=== PATIENT | male | born 2000 | race Caucasian/White ===

== ENCOUNTER 2021-12-28 20:40 | Emergency (ER) | payer OTHER ==
[2021-12-28 21:02] VITALS: TEMP 99.6
--- NOTE | 2021-12-28 21:22 | ED ---
General Adult HPI - General Chief complaint: Skin/Abscess/Foreign Body Stated complaint: Groin swelling Time Seen by Provider: 12/28/21 21:06 Source: patient, RN notes reviewed Mode of arrival: ambulatory Limitations: no limitations - History of Present Illness Initial comments: Patient is a pleasant 21-year-old male presenting to the emergency Department with swelling left groin. Onset of symptoms was around a week or so ago. Symptoms are worse in the past day or 2, possibly aggravated by [place] around [place] the [place]. Area is left groin, however does not involve the testicle. Patient has noticed some mild bleeding. Patient does have history of similar symptoms previously and there is a family history of abscesses. - Related Data Allergies Allergy/AdvReac Type Severity Reaction Status Date / Time amoxicillin [From Augmentin] Allergy Nausea & Verified 12/28/21 21:03 Vomiting clavulanic acid Allergy Nausea & Verified 12/28/21 21:03 [From Augmentin] Vomiting Penicillins Allergy Nausea & Verified 12/28/21 21:03 Vomiting Sulfa (Sulfonamide Allergy Nausea & Verified 12/28/21 21:03 Antibiotics) Vomiting Review of Systems ROS Statement: Those systems with pertinent positive or pertinent negative responses have been documented in the HPI. ROS Other: All systems not noted in ROS Statement are negative. Constitutional: Denies: weight change Eyes: Denies: eye pain ENT: Denies: ear pain Respiratory: Denies: cough Cardiovascular: Denies: chest pain Endocrine: Denies: fatigue Gastrointestinal: Denies: abdominal pain Genitourinary: Denies: urgency Skin: Reports: as per HPI Past Medical History Past Medical History: No Reported History Past Surgical History: No Surgical Hx Reported Smoking Status: Current every day smoker Past Alcohol Use History: Rare General Exam Limitations: no limitations General appearance: alert, in no apparent distress Head exam: Present: normocephalic Eye exam: Present: normal appearance Respiratory exam: Present: normal lung sounds bilaterally Cardiovascular Exam: Present: regular rate, normal rhythm GI/Abdominal exam: Present: soft. Absent: tenderness exam: Present: other (Left groin Between the inguinal region and scrotum with swelling and tenderness. No scrotal swelling or tenderness.). Absent: scrotal swelling Extremities exam: Present: normal inspection Neurological exam: Present: alert Psychiatric exam: Present: normal affect, normal mood Skin exam: Present: normal color Course Vital Signs 12/28/21 20:56 Temperature 99.6 F Pulse Rate 92 Respiratory 18 Rate Blood Pressure 138/77 O2 Sat by Pulse 100 Oximetry Medical Decision Making - Medical Decision Making Patient reevaluated. Patient and family updated - Radiology Data Radiology results: report reviewed (Ultrasound shows complex mass, possible necrotic lymph node) Disposition Clinical Impression: Groin mass Disposition: HOME SELF-CARE Condition: Stable Instructions (If sedation given, give patient instructions): Lymphadenopathy (ED) Additional Instructions: Please follow-up with urology or general surgeon in the next one to 2 days for recheck, number provided. Please also follow-up with primary care physician. Return for fevers, increased pain or swelling, worsening or changing symptoms or any other concerns. Is patient prescribed a controlled substance at d/c from ED?: No Referrals: Kane Cerda MD [STAFF PHYSICIAN] - 1-2 days Ani Roman MD [STAFF PHYSICIAN] - 1-2 days Reginaldo Hutton MD [STAFF PHYSICIAN] - 1-2 days Time of Disposition: 22:09
--- NOTE | 2021-12-28 21:55 | US ---
EXAMINATION TYPE: US groin LT DATE OF EXAM: 12/28/2021 COMPARISON: NONE CLINICAL HISTORY: eval for abcess. Evaluate for abscess. Scanned patient's left groin at area of concern. There appear to be complex channels at area scanned- ?edema Indistinct, hypoechoic area seen measuring 2.4 x 1.7 x 1.5 cm. IMPRESSION: There is a complex mass in the left groin that appears to contain solid and cystic compon ents. There is a central more solid component measuring 2.4 x 1.5 cm. Mass overall measures approxima tely 4 cm. This could be necrotic lymph nodes. No definite drainable fluid collection.
[2021-12-28] MEDS ORDERED: ACET/COD 300 MG/30 MG STARTER PACK 6 TAB BTL PO STA (22:12)
--- NOTE | 2021-12-28 22:13 | ED ---
Disposition Clinical Impression: Groin mass Disposition: HOME SELF-CARE Condition: Stable Instructions (If sedation given, give patient instructions): Lymphadenopathy (ED) Additional Instructions: Please follow-up with urology or general surgeon in the next one to 2 days for recheck, number provided. Please also follow-up with primary care physician. Return for fevers, increased pain or swelling, worsening or changing symptoms or any other concerns. Prescription for antibiotics sent to pharmacy, please start tomorrow. Prescriptions: Clindamycin [Cleocin] 2 tab PO Q8H #60 cap Is patient prescribed a controlled substance at d/c from ED?: No Referrals: Reginaldo Hutton MD [STAFF PHYSICIAN] - 1-2 days Ani Roman MD [STAFF PHYSICIAN] - 1-2 days Kane Cerda MD [STAFF PHYSICIAN] - 1-2 days Time of Disposition: 22:12
[2021-12-28 22:52] VITALS: BP 133/80; PULSE 88; RESP 16
== END 2021-12-28 22:51 | disposition home or self-care (01) ==
LOC: EC 20:40
DX: R19.09 Other intra-abdominal and pelvic swelling, mass and lump (principal); F17.200 Nicotine dependence, unspecified, uncomplicated; Z88.0 Allergy status to penicillin; Z88.2 Allergy status to sulfonamides; Z88.8 Allergy status to other drugs, medicaments and biological substances
CPT/HCPCS: 99283

== ENCOUNTER 2022-01-02 07:49 | Day surgery (SDC) | payer OTHER ==
[2022-01-01 08:45] VITALS: BMI 32.5
--- NOTE | 2022-01-02 07:34 | P.GSHP ---
History of Present Illness H&P Date: 01/02/22 CHIEF COMPLAINT: Left groin cellulitis with abscess HISTORY OF PRESENT ILLNESS: The patient is a 21 year-old male who presents with left groin cellulitis with failed outpatient antibiotics. He presents today for incision and drainage. PAST MEDICAL HISTORY: Please see list. PAST SURGICAL HISTORY: Please see list. MEDICATIONS: Please see list. ALLERGIES: Please see list. SOCIAL HISTORY: No illicit drug use FAMILY HISTORY: No reports of Crohn disease or ulcerative colitis. REVIEW OF ORGAN SYSTEMS: CONSTITUTIONAL: No reports of fevers or chills. GI: Denies any blood in stools or constipation. PHYSICAL EXAM: VITAL SIGNS: Stable Musculoskeletal: Approximately 5 cm mass along the left groin. GENERAL: Well developed and in no acute distress. Pleasant. HEENT: No sclera icterus. Extraocular movements grossly intact. Moist buccal mucosa. Head is atraumatic, normocephalic. Hears conversational speech. No nasal drainage. NECK: Supple without lymphadenopathy. No JV distention. CHEST: Non-labored respirations and equal bilateral excursions. CARDIOVASCULAR: Regular rate and rhythm. Palpable 2+ radial pulses. ABDOMEN: Soft. Non-tender. Nondistended. NEUROLOGIC: No focal or lateralizing signs. PSYCH: Appropriate affect. Alert and oriented to person, place and time. ASSESSMENT: 1. Left groin cellulitis with abscess PLAN: 1. Will proceed of incision and drainage of left groin cellulitis with abscess. Benefits and risks of infection due to location of lesion also reviewed 2. DVT prophylaxis. 3. Antibiotic prophylaxis. 4. Time of recovery, at least 2 weeks Past Medical History Past Medical History: No Reported History Additional Past Medical History / Comment(s): states hx of boils. , left groin cellulitis. History of Any Multi-Drug Resistant Organisms: None Reported Past Surgical History: No Surgical Hx Reported Additional Past Surgical History / Comment(s): Teeth pulled Past Anesthesia/Blood Transfusion Reactions: Motion Sickness Additional Past Anesthesia/Blood Transfusion Reaction / Comment(s): no anesthesia hx Past Psychological History: No Psychological Hx Reported Smoking Status: Never smoker Past Alcohol Use History: Rare Past Drug Use History: Marijuana Additional Drug Use History / Comment(s): current marijuana use Medications and Allergies Home Medications Medication Instructions Recorded Confirmed Type Clindamycin [Cleocin] 300 tab PO Q8H 01/01/22 01/01/22 History Allergies Allergy/AdvReac Type Severity Reaction Status Date / Time amoxicillin [From Augmentin] Allergy Nausea & Verified 01/01/22 08:46 Vomiting clavulanic acid Allergy Nausea & Verified 01/01/22 08:46 [From Augmentin] Vomiting Penicillins Allergy Nausea & Verified 01/01/22 08:46 Vomiting Sulfa (Sulfonamide Allergy Nausea & Verified 01/01/22 08:46 Antibiotics) Vomiting
[~2022-01-02 07:49] MED LIST: ACETAMINOPHEN TAB 500 MG TAB PO STA; DEXAMETHASONE SOD PHOSPHATE 4 MG/ML 1 ML VIAL IV ONE; HEPARIN SODIUM,PORCINE/PF 5,000 UNIT/0.5 ML SYRINGE SQ PRN; HYDROmorphone 0.5 MG/0.5 ML SYRINGE IVP PRN; LACTATED RINGERS 1,000 ML IV SCH; MELOXICAM 7.5 MG TAB PO PRN; MIDAZOLAM 2 MG/2 ML VIAL IV PRN; ONDANSETRON 4 MG/2 ML VIAL IVP ONE; Pre Op ABX Message 1 EACH MISC MISCELLANE ONE; SCOPOLAMINE 1 MG/72 HR PATCH TRANSDERM ONE; ceFAZolin 3 GM in SODIUM CHLORIDE 0.9% 100 ML IVPB STA; metroNIDAZOLE-NS PMX 500 MG in SALINE 1 100ML.BAG IVPB STA
[2022-01-02 08:04] VITALS: RESP 16
[2022-01-02] MEDS ORDERED: PROPOFOL 10 MG/ML 20 ML VIAL IV ONE (08:13)
[2022-01-02] MEDS ORDERED: MIDAZOLAM 2 MG/2 ML VIAL ONE (08:13)
[2022-01-02] MEDS ORDERED: fentaNYL (PF) 50 MCG/ML 2 ML AMP ONE (08:13)
[2022-01-02] MEDS ORDERED: LIDOCAINE 2% INJ 20 MG/ML (2 ML VIAL) ONE (08:13)
[2022-01-02] MEDS ORDERED: SODIUM CHLORIDE 0.9% 50 ML with ceFAZolin 2,000 MG IV ONE ×2 (08:19)
[2022-01-02 08:22] LABS: Basophils # (A) 0.1 k/uL (0-0.2); Basophils % (A) 1 %; Eosinophils # (A) 0.4 k/uL (0-0.7); Eosinophils % (A) 5 %; HCT 48.8 % (39.0-53.0); HGB 16.2 gm/dL (13.0-17.5); Lymphocytes # (A) 2.9 k/uL (1.0-4.8); Lymphocytes % (A) 33 %; MCH 29.1 pg (25.0-35.0); MCHC 33.2 g/dL (31.0-37.0); MCV 87.6 fL (80.0-100.0); Mean Platelet Volume 8.1; Monocytes # (A) 0.6 k/uL (0-1.0); Monocytes % (A) 7 %; Neutrophils # (A) 4.6 k/uL (1.3-7.7); Neutrophils % (A) 52 %; Platelet Count 300 k/uL (150-450); RBC 5.57 m/uL (4.30-5.90); RDW 11.7 % (11.5-15.5); WBC 8.8 k/uL (4.0-11.0)
[2022-01-02 08:34] LABS: ALT 28 U/L (4-49); AST 27 U/L (17-59); African American GFR (CKD) >90 (>60 ml/min/1.73 sqM); Albumin 4.6 g/dL (3.5-5.0); Alkaline Phosphatase 65 U/L (38-126); Anion Gap 7 mmol/L; Blood Urea Nitrogen 19 mg/dL (9-20); Calcium 9.9 mg/dL (8.4-10.2); Carbon Dioxide 32 mmol/L (22-30); Chloride 103 mmol/L (98-107); Glucose 94 mg/dL (74-99); Non-African American GFR(CKD) >90 (>60 ml/min/1.73 sqM); Potassium 4.4 mmol/L (3.5-5.1); Sodium 142 mmol/L (137-145); Total Bilirubin 0.4 mg/dL (0.2-1.3); Total Protein 7.8 g/dL (6.3-8.2)
[2022-01-02] MEDS ORDERED: BUPIVACAIN-EPI 0.25%-1:200,000 30 ML VIAL SQ ONE ×2 (08:52→08:54)
[2022-01-02 09:37] VITALS: TEMP 97
[2022-01-02] MEDS ORDERED: IBUPROFEN 200 MG TAB PO ONE (10:18)
[2022-01-02 10:25] VITALS: BP 135/79; PULSE 71
--- NOTE | 2022-01-02 11:29 | P.OP ---
Date of Procedure: 01/02/22 Description of Procedure: SURGEON: ANI ROMAN MD CAMPAIGN ADVISOR: NONE. PREOPERATIVE DIAGNOSES: 1. Left groin cellulitis with abscess 2. Failed outpatient treatment 3. Obesity excess calories, BMI 32.5 POSTOPERATIVE DIAGNOSES: 1. Complex left groin mass 7 x 6 cm 2. Left groin cellulitis with abscess 3. Failed outpatient treatment 4. Obesity excess calories, BMI 32.5 OPERATION: 1. Excision of deep subcutaneous left groin tumor, 3 x 2 cm. 2. Placement of quarter-inch Brad drain left groin 3. Simple closure left groin, 4 cm incision ANESTHESIA: GETA with local ESTIMATED BLOOD LOSS: 5 mL. SPECIMENS REMOVED: 1. Left groin deep subcutaneous tumor 2. Anaerobic and aerobic cultures left groin COMPLICATIONS: None. FINDINGS: 1. Left groin excision, 3 x 2 cm deep subcutaneous tissue 2. Minimal sanguinous purulent drainage cultured INDICATIONS: The patient is a 21-year-old male who presents with left groin/cellulitis ongoing for over 2 weeks. Despite antibiotics, continue to have symptoms due to failed outpatient treatment. Surgical options, including incision and drainage was discussed. Placement of a drain was reviewed versus packing. Benefits and risks were described. Informed consent was obtained. DESCRIPTION OF PROCEDURE: Patient was brought into the operating room, laid in supine. After general induction, the left groin was prepped and draped in standard sterile fashion using ChloraPrep and position with left leg frog legged. A timeout protocol was confirmed with the surgical team regarding patient's name including procedures to be performed. Preoperative medications was administered. Next, a local field block was administered. The left groin mass was firm without distinct fluctuance. The measured mass was 7 cm like 6 cm with involving the left groin. Ioban draping was placed. A transverse incision, 3 cm was made over the prominence of the mass using #15 blade. A palpable circular tumor was identified and excised from surrounding tissues. Additionally, a cavity of 1 x 1 cm was unroofed with anaerobic and aerobic cultures. Drainage was sanguinous. The bed of the wound was irrigated with dilute hydrogen peroxide. Hemostasis was checked with electrocautery cautery. A quarter-inch Sterling drain was placed at the lateral aspect of the incision and tacked using 2-0 Nylon. 3-0 Vicryl was placed interrupted along the deep dermis. The skin was cleansed. Aquacell Ag dressing was placed. At the end of the procedure, needle, sponge, and instrument count had been verified correct by the surgical nurse practitioner. The patient was taken to the postanesthesia care unit in stable condition. Plan - Discharge Summary Discharge Rx Participant: No New Discharge Prescriptions: New Acetaminophen Tab [Tylenol Tab] 1,000 mg PO Q6HR PRN #30 tablet PRN Reason: Pain Ibuprofen [Motrin] 600 mg PO Q8HR PRN #30 tab PRN Reason: Pain Continue Clindamycin [Cleocin] 300 tab PO Q8H Discharge Medication List Clindamycin [Cleocin] 300 tab PO Q8H 01/01/22 [History] Acetaminophen Tab [Tylenol Tab] 1,000 mg PO Q6HR PRN #30 tablet 01/02/22 [Rx] Ibuprofen [Motrin] 600 mg PO Q8HR PRN #30 tab 01/02/22 [Rx] Follow up Appointment(s)/Referral(s): Ani Roman MD [STAFF PHYSICIAN] - 01/06/22 4:15 pm Patient Instructions/Handouts: *Surgery [facility] - (Anesthesia) Discharge Instructions Outpatient Surgery, Abscess Incision and Drainage (DC) Activity/Diet/Wound Care/Special Instructions: DO NOT REMOVE DRESSING. May shower. No bath tub soaks for two weeks until Jan 16 Diet as tolerated. Use Tylenol and ibuprofen or Aleve scheduled for the next 24-48 hours for best pain relief. Use ice along incisions for today to prevent swelling. Discharge Disposition: HOME SELF-CARE
== END 2022-01-02 11:15 | disposition home or self-care (01) ==
LOC: OR 07:49
PROVIDERS: ATTEND Surgery Plastic and Reconstructive Surgery
DX: L02.214 Cutaneous abscess of groin (principal); L03.314 Cellulitis of groin; R22.2 Localized swelling, mass and lump, trunk; E66.09 Other obesity due to excess calories; Z68.32 Body mass index [BMI] 32.0-32.9, adult; Z88.0 Allergy status to penicillin; Z88.2 Allergy status to sulfonamides
CPT/HCPCS: 88304; 80053; 85025; 87070; 87205; 87075; 87077; 87186; 10060; 11403; J2250; J1100; J2405; J0690; J3010; J2704; J1644; J2001; 88307

== ENCOUNTER 2022-05-24 18:59 | Emergency (ER) | payer OTHER ==
[2022-05-24 19:11] VITALS: BP 144/74; PULSE 107; RESP 18; TEMP 98.6
--- NOTE | 2022-05-24 21:00 | ED ---
General Adult HPI - General Chief complaint: Extremity Injury, Lower Stated complaint: Poss Cellulitis R. Foot Time Seen by Provider: 05/24/22 20:29 Source: patient Mode of arrival: ambulatory Limitations: no limitations - History of Present Illness Initial comments: Dictation was produced using [employer] dictation software. please excuse any grammatical, word or spelling errors. Chief Complaint: 22-year-old male presents to the emergency Department with right foot pain History of Present Illness: Patient's 22-year-old male presents emergency Department with 3 days of right foot pain. Patient states that his symptoms have been consistent all started after work. Patient generally wears boots for work. Patient noticed some redness to his foot that increased in intensity and size. Patient has had abscesses in the past. Denies any fever or constitutional symptoms. The ROS documented in this emergency department record has been reviewed and confirmed by me. Those systems with pertinent positive or negative responses have been documented in the HPI. All other systems are other negative and/or noncontributory. PHYSICAL EXAM: General Impression: Alert and oriented x3, not in acute distress HEENT: Normocephalic atraumatic, extra-ocular movements intact, pupils equal and reactive to light bilaterally, mucous membranes moist. Cardiovascular: Heart regular rate and rhythm Chest: Able to complete full sentences, no retractions, no tachypnea Musculoskeletal: Pulses present and equal in all extremities, no peripheral edema Motor: no focal deficits noted Neurological: CN II-XII grossly intact, no focal motor or sensory deficits noted Skin: Intact with no visualized rashes Psych: Normal affect and mood Right foot: Redness to the metatarsal heads of the right foot. There is some induration near the proximal toes. ED course: 22-year-old male presents emergency Department with cellulitic symptoms to the dorsal right foot. Signs upon arrival are within acceptable limits. Nursing notes and chart review was performed Laboratory evaluation obtained. Leukocytosis of 18.4 with 14.6 neutrophils. Me tabolic panel is unremarkable. CRP is 3.1. Foot x-ray shows no soft tissue gas. Ultrasound shows no fluid collection. Patient observed in emergency department for 3 hours and 43 minutes. Reevaluated at bedside at 10:45 PM for aggressive medical condition. Disposition options were discussed patient is agreeable for discharge. Patient given dose of clindamycin orally and started pack for analgesics. Patient given prescription for clindamycin. Advised follow-up with primary care doctor. Return precautions discussed. - Related Data Home Medications Medication Instructions Recorded Confirmed Clindamycin [Cleocin] 300 tab PO Q8H 01/01/22 01/02/22 Previous Rx's Medication Instructions Recorded Acetaminophen Tab [Tylenol Tab] 1,000 mg PO Q6HR PRN #30 tablet 01/02/22 Ibuprofen [Motrin] 600 mg PO Q8HR PRN #30 tab 01/02/22 Clindamycin [Cleocin] 450 mg PO Q6H 5 Days #45 cap 05/24/22 Allergies Allergy/AdvReac Type Severity Reaction Status Date / Time amoxicillin [From Augmentin] Allergy Nausea & Verified 05/24/22 19:11 Vomiting clavulanic acid Allergy Nausea & Verified 05/24/22 19:11 [From Augmentin] Vomiting Penicillins Allergy Nausea & Verified 05/24/22 19:11 Vomiting Sulfa (Sulfonamide Allergy Nausea & Verified 05/24/22 19:11 Antibiotics) Vomiting Review of Systems ROS Statement: Those systems with pertinent positive or pertinent negative responses have been documented in the HPI. ROS Other: All systems not noted in ROS Statement are negative. Past Medical History Past Medical History: No Reported History Additional Past Medical History / Comment(s): states hx of boils. , left groin cellulitis. History of Any Multi-Drug Resistant Organisms: None Reported Past Surgical History: No Surgical Hx Reported Additional Past Surgical History / Comment(s): Teeth pulled Past Anesthesia/Blood Transfusion Reactions: Motion Sickness Additional Past Anesthesia/Blood Transfusion Reaction / Comment(s): no anesthesia hx Past Psychological History: No Psychological Hx Reported Smoking Status: Never smoker Past Alcohol Use History: Rare Past Drug Use History: Marijuana General Exam Limitations: no limitations Course Vital Signs 05/24/22 19:08 Temperature 98.6 F Pulse Rate 107 H Respiratory 18 Rate Blood Pressure 144/74 O2 Sat by Pulse 99 Oximetry Medical Decision Making - Lab Data Result diagrams: 05/24/22 21:07 05/24/22 21:07 Lab Results 05/24/22 05/24/22 Range/Units 21:07 21:07 WBC 18.4 H (3.8-10.6) k/uL RBC 5.38 (4.30-5.90) m/uL Hgb 16.2 (13.0-17.5) gm/dL Hct 45.5 (39.0-53.0) % MCV 84.6 (80.0-100.0) fL MCH 30.1 (25.0-35.0) pg MCHC 35.6 (31.0-37.0) g/dL RDW 12.4 (11.5-15.5) % Plt Count 226 (150-450) k/uL MPV 8.9 Neutrophils % 79 % Lymphocytes % 12 % Monocytes % 5 % Eosinophils % 1 % Basophils % 1 % Neutrophils # 14.6 H (1.3-7.7) k/uL Lymphocytes # 2.2 (1.0-4.8) k/uL Monocytes # 1.0 (0-1.0) k/uL Eosinophils # 0.2 (0-0.7) k/uL Basophils # 0.1 (0-0.2) k/uL Sodium 139 (137-145) mmol/L Potassium 4.1 (3.5-5.1) mmol/L Chloride 99 (98-107) mmol/L Carbon Dioxide 28 (22-30) mmol/L Anion Gap 12 mmol/L BUN 12 (9-20) mg/dL Creatinine 0.97 (0.66-1.25) mg/dL Est GFR (CKD-EPI)AfAm >90 (>60 ml/min/1.73 sqM) Est GFR (CKD-EPI)NonAf >90 (>60 ml/min/1.73 sqM) Glucose 99 (74-99) mg/dL Calcium 9.4 (8.4-10.2) mg/dL C-Reactive Protein 3.1 H (<1.0) mg/dL Disposition Clinical Impression: Cellulitis Disposition: HOME SELF-CARE Condition: Fair Instructions (If sedation given, give patient instructions): Cellulitis (ED) Prescriptions: Clindamycin [Cleocin] 450 mg PO Q6H 5 Days #45 cap Is patient prescribed a controlled substance at d/c from ED?: No Referrals: Moise Hooper [Primary Care Provider] - 1-2 days Time of Disposition: 22:47
[2022-05-24 21:11] LABS: Basophils # (A) 0.1 k/uL (0-0.2); Basophils % (A) 1 %; Eosinophils # (A) 0.2 k/uL (0-0.7); Eosinophils % (A) 1 %; HCT 45.5 % (39.0-53.0); HGB 16.2 gm/dL (13.0-17.5); Lymphocytes # (A) 2.2 k/uL (1.0-4.8); Lymphocytes % (A) 12 %; MCH 30.1 pg (25.0-35.0); MCHC 35.6 g/dL (31.0-37.0); MCV 84.6 fL (80.0-100.0); Mean Platelet Volume 8.9; Monocytes % (A) 5 %; Neutrophils # (A) 14.6 k/uL (1.3-7.7); Neutrophils % (A) 79 %; Platelet Count 226 k/uL (150-450); RBC 5.38 m/uL (4.30-5.90); RDW 12.4 % (11.5-15.5); WBC 18.4 k/uL (3.8-10.6)
--- NOTE | 2022-05-24 22:09 | US ---
EXAMINATION TYPE: US extremity nonvasculr mass RT DATE OF EXAM: 05/24/2022 COMPARISON: NONE CLINICAL HISTORY: foot redness, suspect abscess. Right foot redness. Scanned area of concern no abscess visualized. IMPRESSION: Exam fails to demonstrate any pathologic discrete fluid collection or abscess in the area of concern in the right foot. There is subcutaneous edema. MTDD
[2022-05-24 22:19] LABS: African American GFR (CKD) >90 (>60 ml/min/1.73 sqM); Anion Gap 12 mmol/L; Blood Urea Nitrogen 12 mg/dL (9-20); C Reactive Protein 3.1 mg/dL (<1.0); Calcium 9.4 mg/dL (8.4-10.2); Carbon Dioxide 28 mmol/L (22-30); Chloride 99 mmol/L (98-107); Glucose 99 mg/dL (74-99); Non-African American GFR(CKD) >90 (>60 ml/min/1.73 sqM); Potassium 4.1 mmol/L (3.5-5.1); Sodium 139 mmol/L (137-145)
--- NOTE | 2022-05-24 22:23 | XR ---
EXAMINATION TYPE: XR foot limited RT DATE OF EXAM: 05/24/2022 COMPARISON: NONE HISTORY: Pain TECHNIQUE: 2 view FINDINGS: Medical tarsals are intact. The toes are intact. I see no fracture nor dislocation. Joint s paces are fairly normal. There are no erosions. IMPRESSION: Negative right foot exam. No fracture.
[2022-05-24] MEDS ORDERED: ACET/COD 300 MG/30 MG STARTER PACK 6 TAB BTL PO STA (22:42)
[2022-05-24] MEDS ORDERED: CLINDAMYCIN 150 MG CAP PO STA ×2 (22:42→22:45)
== END 2022-05-24 23:11 | disposition home or self-care (01) ==
LOC: EC 18:59
DX: L03.90 Cellulitis, unspecified (principal); F12.90 Cannabis use, unspecified, uncomplicated; Z88.0 Allergy status to penicillin; Z88.2 Allergy status to sulfonamides
CPT/HCPCS: 36415; 80048; 85025; 86140; 99284